=== PATIENT | male | born 1940 | race Caucasian/White ===

== ENCOUNTER → 2021-06-15 12:01 | Outpatient (CLI) | payer MEDICARE, SELFPAY ==
[2021-06-15 13:15] LABS: Basophils % 1.1 % (0.1-2.0); Eosinophils # 0.2 K/mm3 (0.0-0.4); Eosinophils % 4.1 % (0.1-12.0); Hematocrit 40.3 % (42.0-52.0); Hemoglobin 13.1 g/dL (14.1-18.0); Lymphocytes # 1.1 K/mm3 (0.7-4.5); Lymphocytes % 27.3 % (10-50); Mean Corpuscular HGB Conc 32.4 g/dL (31.8-35.4); Mean Corpuscular Hemoglobin 31.6 pg (27.0-31.2); Mean Corpuscular Volume 97.5 fl (80-94); Mean Platelet Volume 9.7 fl (7.4-10.4); Monocytes # 0.3 K/mm3 (0.1-1.0); Monocytes % 8.4 % (1.7-9.3); Neutrophils # 2.4 K/mm3 (1.8-7.8); Neutrophils % 59.1 % (37.0-80.0); Platelet Count 163 K/mm3 (142-424); Red Blood Count 4.13 M/mm3 (4.60-6.20); Red Cell Distribution Width 14.6 % (11.5-17.5); White Blood Count 4.1 K/mm3 (4.8-10.8)
[2021-06-15 13:24] LABS: Alanine Aminotransferase 14 U/L (12-78); Albumin Level 4.1 g/dl (3.5-5.0); Alkaline Phosphatase 44 U/L (38-126); Anion Gap 11.5 mEq/L (5-15); Aspartate Amino Transferase 23 U/L (17-59); Bilirubin,Direct 0.1 mg/dl (0.0-0.4); Bilirubin,Indirect 0.3 mg/dL (0.0-0.9); Bilirubin,Total 0.4 mg/dl (0.2-1.3); Bilirubin,Unconjugated 0.3 mg/dL (0.0-1.1); Blood Urea Nitrogen 23 mg/dl (9-20); Carbon Dioxide 30 mmol/L (22.0-30.0); Chloride 101 mmol/L (98-107); Chol/HDL Ratio 4.8 (1-3.5); Cholesterol 134 mg/dl (140-200); Estimated Glomerular Filt Rate 64 ml/min (>60); GFR (African American) 78 ML/MIN (>60); Glucose 106 mg/dl (74-100); HDL Cholesterol 28 mg/dl (40-60); Potassium 3.5 mmoL/L (3.5-5.1); Sodium 139 mmol/L (136-145); Total Protein,Serum 5.9 g/dl (6.3-8.2); Triglycerides 210 mg/dl (30-150); VLDL Cholesterol 42 mg/dL (0-40)
[2021-06-15 13:35] LABS: Direct LDL Cholesterol 71.99 mg/dL (100-129)
[2021-06-15 13:54] LABS: Thyroid Stimulating Hormone 2.31 uIU/mL (0.465-4.68)
[2021-06-15 14:14] LABS: Free T4 (Free Thyroxine) 0.95 ng/dl (0.78-2.19)
[2021-06-21 16:12] LABS: 1,25 Dihydroxy Vitamin D 53 pg/mL (.); 1,25-Dihydroxy, Vitamin D-2 <10 pg/mL (.); 1,25-Dihydroxy, Vitamin D-3 49 pg/mL (.)
== END ==
PROVIDERS: PCP Physician Assistant; Visit Provider Internal Medicine
DX: E11.9 Type 2 diabetes mellitus without complications (principal); E78.5 Hyperlipidemia, unspecified; I20.9 Angina pectoris, unspecified; I44.0 Atrioventricular block, first degree; I45.10 Unspecified right bundle-branch block; I50.9 Heart failure, unspecified; R94.31 Abnormal electrocardiogram [ECG] [EKG]; I11.0 Hypertensive heart disease with heart failure; Z79.4 Long term (current) use of insulin
CPT/HCPCS: 36415; 80048; 80061; 80076; 82652; 84439; 84443; 85025

== ENCOUNTER → 2021-06-24 07:16 | Outpatient (CLI) | payer MEDICARE, SELFPAY ==
--- NOTE | 2021-06-24 | CA_ITS ---
APPROVED REPORT Exam: Pharmacologic Technologist: Marilyn Westbrook, Ht: 6 ft 1 in Wt: 218 lbs BSA: 2.23 m2 HR: 72 bpm BP: 114/75 mmHg Rhythm: NSR, 1 degree AVB, RBBB Medical History Medical History: Diabetic ??? Insulin, HTN, Hyperlipidemia Medications: Aspirin,,,,, Flomax,,,,, Temazepam,,,,, Lyrica,,,,, Carvedilol,,,,, Vit D3,,,,, Hydroco/Acetam,,,,, Dexilant,,,,, Lopid,,,,, Multivitamin,,,,, INSULIN Detemir,,,,, Furosemide,,,,, Cardiac Risk Factors: HTN, , Hyperlipidemia, Diabetes (insulin) Stress Test Details Test: LEXISCAN HR Resting HR: 71 bpm Max Heart Rate (APMHR): 140.278486 bpm Max HR Achieved: 86 bpm Target HR (85% APMHR): 119.732039 bpm % of APMHR: 61.43 Recovery HR: 77 bpm BP Resting BP: 114/75 mmHg Max BP: 126/72 mmHg Recovery BP: 126.0/72.0 mmHg ECG Resting ECG: NSR, 1 degree AVB, RBBB Clinical Exercise duration: 04:14 min Highest Stage Achieved: Stress ECG Conclusion During lexiscan pt experinced no symptoms, no arrhythmias noted. No signficant ST changes. Unremarkable lexiscan stress. Myoview images reported separately. Electronically signed by : Fernando Arreola MD 06/25/2021 08:57:56
--- NOTE | 2021-06-24 07:18 | CA_ITS ---
APPROVED REPORT EXAM: Comprehensive 2D, Doppler, and color-flow Echocardiogram Document Advisor: Bobbi Santiago CRT Ht: 6 ft 1 in Wt: 218lbs BSA: 2.23 BP: 168/75 mmHg Indications: Congestive Heart Failure, COPD, Shortness of Breath, Diabetes, Palpitations, Fatigue, Hyperlipidemia, Hypertension/HDD 2D Dimensions LVOT 1.89 cm (M/F) 1.5-2.5 LA Volume 38.60 mL LA Volume Index 17.30 mL/m2 (M/F) 16-34 M-Mode Dimensions RVDd 2.85 cm (0.9-2.6) LA Diam 4.08 cm (1.9-4.0) LVDd 4.61 cm (3.5-5.7) Ao Diam 4.76 cm (2.0-3.7) LVDs 2.69 cm (3.5-5.7) IVSd 1.68 cm (0.6-1.1) PWd 1.12 cm (0.6-1.1) EF (Teich) 72.60% FS 41.60% EDV (Teich) 97.80 mL TAPSE 2.78 (<1.7) ESV (Teich) 26.80 mL LV Diastology E Decel Time 150.00 (160-240 msec) E/A Ratio 0.54 MED E' 3.30 (< 7 cm/sec) MED A' 7.30 cm/s E'/MED E' Ratio 19.58 (>14) LAT E' 8.20 (<10 cm/sec) LAT A' 14.50 cm/s E/LAT E' Ratio 7.88 (>14) Aortic Valve AO Peak GR. 7.60 mmHg Mitral Valve MV E Max Mitesh. 65.00 (40-130 cm/s) MV A Velocity 120.00 (40-130 cm/s) E/A Ratio 0.54 MV Decel. Time 150.00 (160-240 ms) MV PHT 44.00 ms Pulmonary Valve PV Peak Velocity 227.00 (50-150 cm/s) Tricuspid Valve TR P. Velocity 251.00 cm/s RAP Estimate 10.00 mmHg RVSP 35.20 mmHg Left Ventricle Left atrium is mildly enlarged, left ventricle is normal size, mild concentric left ventricular hypertrophy, visually estimated ejection fraction 55% with no regional wall motion abnormality, grade 1 diastolic dysfunction seen without tissue Doppler evidence of raise left atrial pressure. Right Ventricle Right atrium and right ventricle are mildly enlarged with normal contractility. Aortic Valve Aortic valve is minimally thickened and fibrosed, there is no aortic stenosis or aortic insufficiency. Mitral Valve Mitral valve has mitral annular calcification, there is no mitral stenosis, there is trace mitral regurgitation. Tricuspid Valve Tricuspid valve grossly normal, there is trace tricuspid regurgitation, calculated right ventricular systolic pressure is 35 mmHg. Pulmonic Valve Pulmonic valve is poorly visualized. Great Vessels Aortic root is normal size. Inferior vena cava is normal size with normal inspiratory collapse. Pericardium No significant pericardial effusion noted. Conclusion 1. Mild biatrial enlargement, normal left ventricular size, mild concentric left ventricular hypertrophy, visually estimated ejection fraction 55% with no regional wall motion abnormality, grade 1 diastolic dysfunction seen without tissue Doppler evidence of raise left atrial pressure. 2. Mildly enlarged right ventricle with normal contractility. 3. Trace mitral and tricuspid regurgitation. Calculated right ventricular systolic pressure is 35 mmHg. 4. Inferior vena cava is normal size with normal inspiratory collapse. 5. No significant pericardial effusion noted. Electronically signed by : Fernando Arreola MD 06/25/2021 09:46:45
--- NOTE | 2021-06-24 07:53 | NM_ITS ---
APPROVED REPORT Exam: Nuclear Stress Test Indication: d.m., tob use, sob, fatigue, hyperlipidemia, cad, abn ekg Patient Location: Outpatient Stress Tech: Stefany Bowling IN Tech:CORRINA Mcfadden RT(R)(N) Ht: 6 ft 1 in Wt: 217 lbs HR: 71 bpm BP: 114/75 mmHg BSA: 2.23 m2 BMI: 28.6 History: d.m., tob use, sob, fatigue, hyperlipidemia, cad, abn ekg Procedure: Patient received a 0.4 mg of intravenous Lexiscan, resting heart rate 71 bpm, resting blood pressure 114/75 mmHg, with Lexiscan maximum heart rate achived was 83 bpm which is Less than 85 % of the maximum predicted heart rate and blood pressure was 112/73 mmHg. With Lexiscan, patient denied any complaint of chest pain. Electrocardiogram Resting electrocardiogram showed sinus rhythm right bundle branch block, with Lexiscan there is less than 1.[address] segment depression noted from the baseline EKG. The EKG portion of the Lexiscan is nondiagnostic. Cardiac Stress and Resting SPECT Images: Cardiac Stress and Resting SPECT images were obtained using technetium 99m Myoview 32.9 mCi stress and 10.68 mCi at rest. Gated SPECT for analysis of segmental wall motion and calculation of the ejection fraction also done. Prone images were also obtained. Cardiac stress and rest SPECT images show decreased tracer activity in the anterolateral wall which improves on the resting images suggestive of reversible ischemia, a fixed defect in the inferior wall is likely secondary to soft tissue attenuation. Computer derived ejection fraction is 56% with no regional wall motion abnormality, right ventricle is mildly enlarged with normal contractility, there is transient ischemic dilatation of the left ventricle seen. Conclusion: 1. The EKG portion of the Lexiscan Myoview is nondiagnostic. 2. Scintigraphic evidence of reversible ischemia seen in the anterolateral wall, inferior fixed defect is likely secondary to soft tissue attenuation, computer derived ejection fraction 56% with no regional wall motion abnormality, right ventricle is mildly enlarged with normal contractility. There is transient ischemic dilatation of the left ventricle seen. 3. Abnormal Lexiscan Myoview study. Electronically signed by : Fernando Arreola MD 06/25/2021 09:03:23
== END ==
PROVIDERS: PCP Physician Assistant; Visit Provider Nurse Practitioner Family
DX: E11.9 Type 2 diabetes mellitus without complications (principal); E78.5 Hyperlipidemia, unspecified; I20.9 Angina pectoris, unspecified; I44.0 Atrioventricular block, first degree; I45.10 Unspecified right bundle-branch block; I50.9 Heart failure, unspecified; R94.31 Abnormal electrocardiogram [ECG] [EKG]; I11.0 Hypertensive heart disease with heart failure; Z79.4 Long term (current) use of insulin
CPT/HCPCS: 78452; 93017; 93306; A9502; J2785

== ENCOUNTER 2021-07-06 08:54 | Day surgery (SDC) | payer MEDICARE, SELFPAY ==
[2021-07-06] VITALS (13 sets, daily range): BP systolic 107–160; BP diastolic 63–96; PULSE 70–88; RESP 18; TEMP 36.8; O2SAT 91–98; BMI 27.9
--- NOTE | 2021-07-06 | IR_ITS ---
APPROVED REPORT Patient Location: Outpatient PROCEDURES Selective coronary angiogram Informed consent was obtained prior to the procedure. COMPLICATIONS None Estimated Blood Loss: Less than 10 mls TECHNIQUE One percent lidocaine used to anesthetize the right anterior aspect of the wrist. The right radial artery was accessed via the Seldinger technique. A 6 [place] sheath was placed in the right radial artery. 2.5 mg of verapamil, 800 mcg of nitroglycerin, 1mg Lidocaine and 5000 U Heparin were given through the arterial sheath. The trap catheter was also used to perform selective coronary angiogram. At the end of the procedure the sheath was removed good hemostasis was achieved using Traclet band, patient was transferred to the postop holding area in stable condition. ANGIOGRAPHIC RESULTS The left main artery Normal The left anterior descending artery Is mild 10% luminal irregularities in the proximal segment with a mid vessel 20 to 30% stenosis The circumflex artery Is nondominant and has proximal 20 and 30% stenoses with a proximal 40% stenosis and a second obtuse marginal artery which is 1.5 mm in diameter The right coronary artery Is dominant and has proximal mid vessel 30% stenosis The BROWN ventriculogram reveals Not performed The left ventricular end-diastolic pressure Not measured IMPRESSION Mild to moderate nonflow limiting coronary disease as described above PLAN 1. Continue medical management accompanied by risk factor modification Electronically signed by : Gideon Hernandez MD 07/06/2021 10:43:01
[2021-07-06 09:31] LABS: Eosinophils # 0.2 K/mm3 (0.0-0.4); Eosinophils % 4.6 % (0.1-12.0); Hematocrit 40.6 % (42.0-52.0); Hemoglobin 13.1 g/dL (14.1-18.0); Lymphocytes % 30.5 % (10-50); Mean Corpuscular HGB Conc 32.2 g/dL (31.8-35.4); Mean Corpuscular Hemoglobin 31.4 pg (27.0-31.2); Mean Corpuscular Volume 97.3 fl (80-94); Mean Platelet Volume 9.5 fl (7.4-10.4); Monocytes # 0.3 K/mm3 (0.1-1.0); Monocytes % 8.6 % (1.7-9.3); Neutrophils # 1.9 K/mm3 (1.8-7.8); Neutrophils % 55.3 % (37.0-80.0); Platelet Count 162 K/mm3 (142-424); Red Blood Count 4.18 M/mm3 (4.60-6.20); Red Cell Distribution Width 14.2 % (11.5-17.5); White Blood Count 3.4 K/mm3 (4.8-10.8)
[2021-07-06 09:37] LABS: Chloride 100 mmol/L (98-107); Potassium 3.2 mmoL/L (3.5-5.1); Sodium 138 mmol/L (136-145)
[2021-07-06 09:40] LABS: Anion Gap 11.2 mEq/L (5-15); Blood Urea Nitrogen 18 mg/dl (9-20); Calcium 8.6 mg/dl (8.4-10.2); Carbon Dioxide 30 mmol/L (22.0-30.0); Creatinine Clearance Estimated 80 mL/min (50-200); Estimated Glomerular Filt Rate 72 ml/min (>60); GFR (African American) 87 ML/MIN (>60); Glucose 135 mg/dl (74-100)
== END 2021-07-06 14:07 | disposition home or self-care (01) ==
LOC: CATHLAB 08:55
PROVIDERS: PCP Physician Assistant; Visit Provider Internal Medicine
DX: I25.10 Atherosclerotic heart disease of native coronary artery without angina pectoris (principal); I11.0 Hypertensive heart disease with heart failure; E78.5 Hyperlipidemia, unspecified; E11.9 Type 2 diabetes mellitus without complications; Z79.4 Long term (current) use of insulin; I50.9 Heart failure, unspecified; I44.0 Atrioventricular block, first degree; I45.10 Unspecified right bundle-branch block; R94.30 Abnormal result of cardiovascular function study, unspecified; K21.9 Gastro-esophageal reflux disease without esophagitis; J44.9 Chronic obstructive pulmonary disease, unspecified; Z79.899 Other long term (current) drug therapy
CPT/HCPCS: 80048; 85025; 93454; 99152; C1725; C1769; J1644; Q9967